=== PATIENT | male | born 1990 | race Hispanic/Latino ===

== ENCOUNTER 2022-09-21 10:04 | Emergency (ER) | payer OTHER ==
[~2022-09-21] VITALS: Ht 167.6 cm; Wt 111.6 kg
[2022-09-21] MEDS ORDERED: MORPHINE 2 MG SYG IVP ONE (10:30)
[2022-09-21] MEDS ORDERED: PANTOPRAZOLE 40 MG/VIAL IV ONE (10:30)
[2022-09-21] MEDS ORDERED: MAG/ALUM/SIMETH 30 ML UDCUP PO ONE (10:30)
[2022-09-21] MEDS ORDERED: DICYCLOMINE HCL 10 MG/5 ML ML PO ONE (10:30)
[2022-09-21] MEDS ORDERED: ONDANSETRON 4MG INJ IVP ONE (10:30)
[2022-09-21] MEDS ORDERED: LIDOCAINE HCL 2% VISCOUS 15 ML UDCUP PO ONE (10:30)
[2022-09-21 10:40] LABS: BASOPHILS % (AUTO) 0.3 % (0.0-5.0); EOSINOPHILS % (AUTO) 0.1 % (0.0-8.0); HEMATOCRIT 49.2 % (42-54); LYMPHOCYTES % (AUTO) 19.3 % (21.0-51.0); MEAN CORPUSCULAR HEMOGLOBIN 28.6 pg (27.0-33.0); MEAN CORPUSCULAR HGB CONC 33.3 g/dL (32.0-36.0); MEAN CORPUSCULAR VOLUME 85.7 fL (79-99); MONOCYTES % (AUTO) 8.2 % (3.0-13.0); NEUTROPHILS % (AUTO) 71.7 % (40.0-77.0); PLATELET COUNT (AUTO) 248 K/uL (130-400); RED BLOOD CELL COUNT(AUTO) 5.74 MIL/uL (4.50-6.20); WHITE BLOOD COUNT (AUTO) 10.9 K/uL (4.8-10.8)
[2022-09-21 10:49] LABS: POTASSIUM 3.9 mmol/L (3.5-5.1)
[2022-09-21 10:53] LABS: ALBUMIN 3.8 g/dL (3.5-5.0); TOTAL PROTEIN, SERUM 7.5 g/dL (6.0-8.3)
[2022-09-21 13:55] VITALS: BP 132/85
[2022-09-21] MEDS ORDERED: IOHEXOL 350 MG/ML 100ML INFUS..BTL IV ONE (14:22)
[2022-09-21] MEDS ORDERED: TRAM50TA4 PO (15:18)
[2022-09-21] MEDS ORDERED: ONDA4TAB10 PO (15:18)
== END 2022-09-21 15:35 | disposition home or self-care (01) ==
LOC: EDH 10:04 → EDBD 10:04 → EDH 15:35
DX: K85.90 Acute pancreatitis without necrosis or infection, unspecified (principal); K21.9 Gastro-esophageal reflux disease without esophagitis
CPT/HCPCS: 99285; 74177; 96374; 71045; 96375; 84484; 80053; 83690; 85025; 36415; 74021; 93005; J2405; C9113; Q9967

== ENCOUNTER 2022-11-29 00:49 | Emergency (ER) | payer OTHER ==
[~2022-11-29] VITALS: Ht 175.3 cm; Wt 109.8 kg
[~2022-11-29 00:49] MED LIST: ONDA4TAB10 PO; TRAM50TA4 PO
[2022-11-29 01:10] LABS: BASOPHILS % (AUTO) 0.4 % (0.0-5.0); EOSINOPHILS % (AUTO) 0.5 % (0.0-8.0); HEMATOCRIT 49.7 % (42-54); LYMPHOCYTES % (AUTO) 40.9 % (21.0-51.0); MEAN CORPUSCULAR HEMOGLOBIN 28.3 pg (27.0-33.0); MEAN CORPUSCULAR VOLUME 85.7 fL (79-99); NEUTROPHILS % (AUTO) 50.9 % (40.0-77.0); PLATELET COUNT (AUTO) 282 K/uL (130-400); RED CELL DISTRIBUTION WIDTH 12.8 % (11.0-15.5)
[2022-11-29 01:24] LABS: CREATININE 1.1 mg/dL (0.5-1.5); POTASSIUM 3.8 mmol/L (3.5-5.1)
[2022-11-29 01:26] LABS: ALBUMIN 4.3 g/dL (3.5-5.0); MAGNESIUM 1.8 mg/dL (1.80-2.40); TOTAL PROTEIN, SERUM 7.5 g/dL (6.0-8.3)
[2022-11-29] MEDS ORDERED: METOCLOPRAMIDE 10 MG/2 ML VIAL IVP ONE (01:30)
[2022-11-29] MEDS ORDERED: FAMOTIDINE 20MG VIAL IV ONE (01:30)
[2022-11-29] MEDS ORDERED: DICYCLOMINE HCL 10 MG/5 ML ML PO ONE (01:30)
[2022-11-29] MEDS ORDERED: 0.9%NACL 1000ML 2,000 ML IV ONE (01:30)
[2022-11-29] MEDS ORDERED: MORPHINE 4 MG SYG IVP ONE (01:30)
[2022-11-29] MEDS ORDERED: DIAZEPAM 5 MG/ML 2 ML SYG IVP ONE (02:00)
[2022-11-29 03:22] LABS: APPEARANCE,URINE CLEAR (CLEAR); BILIRUBIN,URINE NEGATIVE (NEGATIVE); COLOR,URINE YELLOW (YELLOW); GLUCOSE, URINE (UA) NEGATIVE (NEGATIVE); KETONES,URINE NEGATIVE (NEGATIVE); LEUKOCYTE ESTERASE ,URINE 75 Leu/uL (NEGATIVE); NITRATE,URINE NEGATIVE (NEGATIVE); OCCULT BLOOD,URINE NEGATIVE (NEGATIVE); PH,URINE 6.5 (5.0-8.0); PROTEIN,URINE 20 mg/dL (NEGATIVE)
[2022-11-29 03:25] LABS: MUCUS,URINE RARE LPF (None Seen); SQUAMOUS EPITHELIAL CELL,UR RARE /HPF (0-2)
[2022-11-29 03:30] LABS: AMPHET/METH SCREEN,URINE NEGATIVE (NEGATIVE); BARBITURATE SCREEN, URINE NEGATIVE (NEGATIVE); BENZODIAZEPINES SCREEN,URINE NEGATIVE (NEGATIVE); CANNABINOID SCREEN,URINE NEGATIVE (NEGATIVE); COCAINE SCREEN,URINE NEGATIVE (NEGATIVE); OPIATE SCREEN,URINE POSITIVE (NEGATIVE); PHENCYCLIDINE SCREEN,URINE NEGATIVE (NEGATIVE)
[2022-11-29] MEDS ORDERED: CEPH500B PO (03:45)
[2022-11-29] MEDS ORDERED: CEFTRIAXONE 2GM VIAL IVPB ONE (04:00)
[2022-11-29 04:13] VITALS: BP 146/86
== END 2022-11-29 04:22 | disposition home or self-care (01) ==
LOC: EDH 00:49
DX: N39.0 Urinary tract infection, site not specified (principal); R07.9 Chest pain, unspecified; F17.200 Nicotine dependence, unspecified, uncomplicated; Z76.5 Malingerer [conscious simulation]; Z79.899 Other long term (current) drug therapy
CPT/HCPCS: 99285; 96365; 96375; 71045; 96361; 83735; 84484; 80053; 80305; 83690; 85025; 85378; 87088; 36415; 93005; 81001; J3490; J7030; J0696; J3360; J2270; J2765

== ENCOUNTER 2024-01-12 01:52 | Emergency (ER) | payer OTHER ==
[~2024-01-12] VITALS: Ht 172.7 cm; Wt 108.9 kg
[~2024-01-12 01:52] MED LIST changes: +CEPH500B PO; +ONDA-243 PO; -ONDA4TAB10 PO
[2024-01-12] MEDS: FAMOTIDINE 20MG VIAL IV ONE (02:06)
[2024-01-12] MEDS: 0.9%NACL 1000ML 1,000 ML IV ONE (02:06)
[2024-01-12] MEDS: ONDANSETRON 4MG INJ IVP ONE (02:06)
[2024-01-12 02:07] VITALS: BP 150/93; PULSE 68; RESP 20; O2SAT 97
[2024-01-12] MEDS: MORPHINE 2 MG SYG IVP ONE (02:07)
[2024-01-12 02:08] LABS: BASOPHILS # (AUTO) 0.05 K/uL (0.00-0.20); BASOPHILS % (AUTO) 0.5 % (0.0-5.0); EOSINOPHILS # (AUTO) 0.08 K/uL (0.00-0.70); EOSINOPHILS % (AUTO) 0.8 % (0.0-8.0); HEMATOCRIT 46.8 % (42-54); IMMATURE GRANULOCYTE ABSOLUTE 0.02 K/uL (0-1); LYMPHOCYTES % (AUTO) 37.9 % (21.0-51.0); MEAN CORPUSCULAR HEMOGLOBIN 28.7 pg (27.0-33.0); MEAN CORPUSCULAR VOLUME 84.5 fL (79-99); MONOCYTES # (AUTO) 0.8 K/uL (0.1-1.0); MONOCYTES % (AUTO) 7.6 % (3.0-13.0); NEUTROPHILS # (AUTO) 5.6 K/uL (1.8-7.7); PLATELET COUNT (AUTO) 263 K/uL (130-400); RED BLOOD CELL COUNT(AUTO) 5.54 MIL/uL (4.50-6.20); RED CELL DISTRIBUTION WIDTH 12.1 % (11.0-15.5); WHITE BLOOD COUNT (AUTO) 10.5 K/uL (4.8-10.8)
[2024-01-12 02:18] LABS: POTASSIUM 3.3 mmol/L (3.5-5.1)
[2024-01-12 02:22] LABS: BILIRUBIN,TOTAL 0.8 mg/dL (0.2-1.0); TOTAL PROTEIN, SERUM 7.8 g/dL (6.0-8.3)
[2024-01-12 02:27] LABS: INR 0.97 (0.85-1.15); PROTHROMBIN TIME 10.5 SEC (9.6-11.6)
[2024-01-12 02:28] LABS: PARTIAL THROMBOPLASTIN TIME 25.6 SEC (26.3-35.5)
[2024-01-12] MEDS ORDERED: ONDA-243 PO (02:48)
[2024-01-12] MEDS ORDERED: FAMO-136 PO (02:48)
== END 2024-01-12 03:00 | disposition home or self-care (01) ==
LOC: EDH 01:52
DX: K29.70 Gastritis, unspecified, without bleeding (principal); K21.9 Gastro-esophageal reflux disease without esophagitis; Z79.2 Long term (current) use of antibiotics; Z79.899 Other long term (current) drug therapy; F17.200 Nicotine dependence, unspecified, uncomplicated
CPT/HCPCS: 99285; 96374; 96375; 71045; 84484 ×2; 80053; 83690; 85025; 85610; 85730; 36415; 93005; J3490; J2270; J7030; J2405